=== PATIENT | male | born 2000 | race Caucasian/White ===

== ENCOUNTER 2021-08-23 02:18 | Emergency (ER) | payer OTHER ==
[2021-08-23 03:12] LABS: Bilirubin Negative (Negative); Blood, Urine Negative (Negative); Clarity Clear (Clear); Glucose, Urine (Dipstick) Normal (Negative); Ketone, Urine Negative (Negative); Leukocyte Negative Leu/uL (Negative); Nitrite Negative (Negative); Protein, Urine (Dipstick) 10 mg/dL (Neg-Trace); Specific Gravity, Urine 1.014 (1.002-1.036); Urobilinogen Normal mg/dL (Less than 2)
== END 2021-08-23 03:39 | disposition home or self-care (01) ==
LOC: ERS 02:18
DX: N48.89 Other specified disorders of penis (principal); R11.0 Nausea
CPT/HCPCS: 81003; 99283